=== PATIENT | female | born 1960 | race Caucasian/White ===

== ENCOUNTER 2023-09-30 09:20 | Outpatient (CLI) | payer MEDICARE, BC ==
--- NOTE | 2023-09-30 09:56 | Sleep Patient Instructions ---
Sleep Center Visit Summary - Patient Visit Information Reason for Visit: Initial consult for evaluation of sleep disordered breathing and other sleep issues. - Patient Instructions Instructions Attached: Sleep Study Home Monitor, Sleep Study Additional Instructions: You will be completing a sleep study, either an in-lab polysomnography (PSG) or home sleep study (HST). You will follow-up in the sleep care office after the sleep study is completed to hear the results and talk about therapy, if needed. You will be called by our office staff to schedule this appointment, but you may contact us with any questions. - Clinic Information Contact: [facility] [address] [place] [id number] [email or web address] T: [phone]
--- NOTE | 2023-09-30 10:05 | SLEEP CARE CONSULTATION ---
Information from patient questionnaire entered by Tammy Cage. I have reviewed and concur with the information entered by Tammy Cage. This document represents the service I personally performed and the decisions made by me, Sandy Hyatt ARNP. History of Present Illness Service Date and Time: 09/30/2023 0920 Reason for Visit: New patient Chief Complaint: reports: Unrefreshed sleep, Frequent awakenings at night Date of Onset: 20 + years Usual bedtime: no usual - approximately 11 PM Time it takes to fall asleep: 10 min Snores at night: Yes Observed to quit breathing while asleep: No Sleeps alone due to snoring: No Number of times waking at night: 4 Reasons for waking at night: reports: Bathroom, Other (Unknown reason; wakes with mouth dry). denies: Choking, Gasping for air Toss, Turn, or Twitch while sleeping: No Recalls having dreams: No Usually gets out of bed at: 7 AM Feels refreshed in the morning: No Morning headache: No Sleepy or fatigued during the day: No Ever fallen asleep while driving: No Takes day naps: No Dreams during day naps: No Prior sleep studies: Yes Year and Where: About 6 years ago [facility]? Additional HPI information: I had the pleasure of seeing ALYSHA APPLE today regarding the possibility of her having a sleep disorder. Her current complaints are unrefreshed sleep and frequent night awakenings. She says a person she dated for 3 years told her that she snores. She had never been told that before that time. She denies an pauses in breathing or waking up gasping/choking. She saw a doctor for evaluation and had a couple procedures, one on nose and one on throat. She says she continues to snore and not sleep well. She had her tonsils removed when she was 4 years old. She states that over 6 years ago she had a HST but it was negative. She says she does not sleep well at night because she is waking up at least 4 times a night and she does not feel rested in the morning. She says she is no overly fatigued or tired during the day. 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 Patient is and lives in [place]. Have you smoked in the past 12 months: No Alcohol use: Yes Alcohol amount and frequency: Glass of wine 4 days a week Caffeine use: Yes Caffeine amount and frequency: 1 double latte in the morning Family History Family history of sleep disordered breathing: No Allergies and Home Medications Known drug allergies: Yes (Sulfa) Drug allergies reviewed: Yes Home medication list reviewed: Yes Allergy and home medication list: Home Medications Medication Instructions Recorded Confirmed Last Taken Type Rosuvastatin Calcium 10 mg ORAL DAILY 09/30/23 09/30/23 Unknown History Review of Systems Weight gain over past 5 years: 15 Cardiovascular: denies: high blood pressure Gastrointestinal: denies: heartburn Neurological: denies: headaches Psychiatric: reports: depression (mild) Ear/Nose/Throat: reports: tonsillectomy, wisdom teeth removed Endocrine: denies: thyroid disease Musculoskeletal: reports: joint pain (/stiffness - some) Physical Exam Vital signs obtained and entered by: Sandy Delvalle NP Blood Pressure: 133/80 Cuff size: wrist (right) Heart Rate: 68 O2 Saturation: 96 Height: 5 ft 6 in Weight: 151 lb 6.4 oz Body Mass Index: 24.4 BMI Classification: Normal Neck circumference: 14 (inches) Mouth and throat: narrow oropharynx Soft palate: long Hard palate: normal Uvula: normal Uvula visualization: 0% Mallampati Class IV Tongue: enlarged in size with teeth waldrop on lateral edges Tonsils: absent bilaterally Neck: normal w/o lymphadenopathy or thyromegaly Heart: regular rate and rhythm Lungs: clear bilaterally Impression and Plan 1. Suspected Obstructive Sleep Apnea-Hypopnea Syndrome, as suggested by a history of loud and irregular snoring, frequent awakening during the night and unrefreshed sleep. Narrow oropharynx and obesity are common predisposing factors for obstructive sleep apnea-hypopnea syndrome. I recommend proceeding to archana ysomnography to confirm the diagnosis and to assess severity. If the patient has significant sleep disordered breathing, a manual CPAP titration study will also be performed to find the optimal treatment pressure. I informed the patient of what the sleep studies involve and after some discussion, obtained agreement to proceed. The pathophysiology of obstructive sleep apnea-hypopnea syndrome was di scussed with the patient and health risks of cardiovascular and cerebrovascular disease if not treated. Risks of drowsy driving discussed in detail and patient advised to avoid long distance driving and to casing puller at the first sign of drowsiness. She is staying in [place] for a couple months and we will see how we can get the sleep study done. We may have to wait until she comes back. Patient agreed to plan. * Schedule polysomnography +- manual CPAP titration study and return in 1-2 weeks after the study to discuss result and initiate therapy. * Avoid long distance driving or driving when feeling sleepy. * Avoid alcohol, sedative and muscle relaxant around bedtime. * Review instructions provided by trained office staff on how to prepare for the sleep study. * Return for follow-up after sleep study completed. Plan: PSG/HST Visit Type: In Office Time Spent with Patient (minutes): 32 Provider Statement: I spent 100% of the Face to Face Visit with the patient with greater than 50% spent counseling the patient and coordination of care.
[2023-09-30 10:14] VITALS: BP 133/80; O2SAT 96
== END 2023-09-30 09:21 | disposition home or self-care (01) ==
LOC: SC 09:20
PROVIDERS: ATTEND Nurse Practitioner Family
DX: G47.8 Other sleep disorders (principal); R06.83 Snoring; F32.A Depression, unspecified
CPT/HCPCS: 99203; G0463; 99212

== ENCOUNTER 2024-04-08 16:10 | Outpatient (CLI) | payer MEDICARE, BC ==
--- NOTE | 2024-04-08 21:56 | XRAY Report ---
PROCEDURE: Thoracic Spine 2V INDICATIONS: LOWER BACK INJURY TECHNIQUE: 3 views of the thoracic spine were acquired. COMPARISON: None. FINDINGS: Bones: No acute fractures or dislocations. No suspicious bony lesions. 12 pairs of ribs are noted, and appear intact where visualized. Multilevel thoracic spondylosis with mild increased focal kypho sis of the upper thoracic spine secondary to chronic anterior compression deformity of a vertebral vikash dy. No acute compression fractures seen. Soft tissues: No paravertebral stripe thickening. IMPRESSION: Thoracic spine without acute fracture or traumatic malalignment. Moderate multilevel thoracic spondyl osis with mildly increased kyphosis centered over chronic appearing mild anterior compression deformi ty of a upper/mid thoracic spine vertebral body. Reviewed by: Avelino Ty MD on 04/08/2024 9:55 PM PDT Approved by: Avelino Ty MD on 04/08/2024 9:55 PM PDT Station ID: [id number]
== END 2024-04-08 16:11 | disposition home or self-care (01) ==
LOC: DI 16:10
PROVIDERS: ATTEND Nurse Practitioner Family
DX: M47.814 Spondylosis without myelopathy or radiculopathy, thoracic region (principal); M40.204 Unspecified kyphosis, thoracic region; M43.8X4 Other specified deforming dorsopathies, thoracic region

== ENCOUNTER 2024-07-01 15:14 | Outpatient (CLI) | payer MEDICARE, BC ==
--- NOTE | 2024-07-02 13:19 | MRI Report ---
PROCEDURE: Thoracic Spine WO INDICATIONS: THORACIC BACK PAIN TECHNIQUE: Noncontrast sagittal T1 spine echo and T2 fast spin echo, sagittal STIR, axial T1 and T2 fast spin ec ho through the thoracic spine. COMPARISON: X-ray 04/08/2024 FINDINGS: Image quality: Excellent. Alignment and Curvature: Mild levocurvature of the upper thoracic spine. Bone Marrow: Mild to moderate compression deformity of the T7 vertebral body. There is mild edema wit hin the T7 vertebral body as well as the inferior endplate of T6 and superior endplate of T8. Given s tability of fracture compared to 04/08/2024, these likely represent degenerative endplate changes. No retropulsion. No other vertebral body compression deformity. Spinal Cord: Visualized spinal cord is normal in size and signal. Paraspinous Soft Tissues: No paravertebral masses. Miscellaneous: Multilevel disc desiccation and mild height loss. Minimal posterior disc bulges at se veral levels. On axial images, central canal and foramina appear widely patent at all scanned levels. IMPRESSION: 1.Stable mild to moderate compression deformity of the T7 vertebral body. Mild edema within the T7 ve rtebral body as well as the adjacent endplates of T6 and T8. Given stability of fracture compared to 04/08/2024, these likely represent degenerative endplate changes, less likely subacute compression def ormity. 2.Mild degenerative changes of the thoracic spine without central canal or neuroforaminal stenosis. Reviewed by: Christian Garcia MD on 07/02/2024 1:18 PM PDT Approved by: Christian Garcia MD on 07/02/2024 1:18 PM PDT Station ID: [id number]
== END 2024-07-01 15:15 | disposition home or self-care (01) ==
LOC: DI 15:14
PROVIDERS: ATTEND Nurse Practitioner Family
DX: M54.9 Dorsalgia, unspecified (principal); M47.814 Spondylosis without myelopathy or radiculopathy, thoracic region; R93.7 Abnormal findings on diagnostic imaging of other parts of musculoskeletal system